=== PATIENT | male | born 1950 | race Caucasian/White ===

== ENCOUNTER → 2024-02-23 07:03 | Outpatient (REF) | payer OTHER, SELFPAY | LOC: HWRCS 07:03 | PROVIDERS: ATTENDING PHYSICIAN Internal Medicine Cardiovascular Disease; FAMILY PHYSICIAN Family Medicine | DX: I25.5 Ischemic cardiomyopathy (principal) | CPT/HCPCS: 93306 ==

== ENCOUNTER → 2025-04-22 06:37 | Outpatient (REF) | payer OTHER, SELFPAY | LOC: PAVMRI 06:37 | PROVIDERS: ATTENDING PHYSICIAN Orthopaedic Surgery | DX: M79.641 Pain in right hand (principal) | CPT/HCPCS: 73218 ==